=== PATIENT | female | born 1975 | race Caucasian/White ===

== ENCOUNTER 2016-10-12 11:12 | Emergency (ER) | payer MEDICAID ==
[~2016-10-12] VITALS: Ht 167.6 cm; Wt 95.3 kg
[2016-10-12 11:20] VITALS: BP 164/107; PULSE 75; RESP 18; TEMP 97.2; O2SAT 97
--- NOTE | 2016-10-12 11:26 | NUR ---
Pt placed to ER bed 04 and to gown. Pt report given to NEGRITO Rodriguez.
--- NOTE | 2016-10-12 11:30 | NUR ---
ER at bedside examining patient.
--- NOTE | 2016-10-12 11:35 | NUR ---
PT PRESENTS TO ED C/O VAGINAL BLEEDING SATURATING 2 PERIPADS PER HR. PT REPORTS MISCARRIAGE X 1WK.PT HAS TOTAL OF 4 PER REPORT. PT AAO X 4 . PT TO MOVED TO BED 7 FOR PT PRIVACY AND COMFORT DURING EXAM. FEMALE RN TO ASSIGNED.
--- NOTE | 2016-10-12 11:52 | NUR ---
pt moved to bed 7
[2016-10-12 11:56] LABS: BASOPHILS % (AUTO) 0.4 % (0.0-2.0); EOSINOPHILS # (AUTO) 0.1 K/uL (0.0-0.4); EOSINOPHILS % (AUTO) 1.6 % (0.0-4.0); HEMATOCRIT 43.7 % (36-48); HEMOGLOBIN 14.6 g/dL (12.0-16.0); LYMPHOCYTES # (AUTO) 1.7 K/uL (1.0-5.5); LYMPHOCYTES % (AUTO) 20.3 % (20.5-51.5); MEAN CORPUSCULAR HEMOGLOBIN 30 pg (27-31); MEAN CORPUSCULAR HGB CONC 33 % (32-36); MEAN CORPUSCULAR VOLUME 89 fL (79.0-98.0); MONOCYTES # (AUTO) 0.5 K/uL (0.0-1.0); MONOCYTES % (AUTO) 5.5 % (1.7-9.3); NEUTROPHILS % (AUTO) 72.2 % (40.0-70.0); PLATELET COUNT (AUTO) 401 K/uL (130-430); RED BLOOD CELL COUNT(AUTO) 4.92 MIL/uL (4.2-6.2); RED CELL DISTRIBUTION WIDTH 12.8 % (9.0-15.0); WHITE BLOOD COUNT (AUTO) 8.3 K/uL (4.8-10.8)
[2016-10-12 12:05] LABS: CALCIUM 9.2 mg/dL (8.4-11.0); CREATININE 0.87 mg/dL (0.55-1.30); POTASSIUM 3.8 mmol/L (3.5-5.1)
--- NOTE | 2016-10-12 12:05 | NUR ---
Patient presents to the emergency department with complaints of heavy vaginal bleeding since thursday and 710 RLQ pain. Patient states she is soaking 1 overnight pad every 2 hours. will continue to monitor
--- NOTE | 2016-10-12 12:10 | NUR ---
off unit to Radiology for ultrasound via w/c
[2016-10-12 12:13] LABS: BILIRUBIN,URINE NEGATIVE (NEGATIVE); BLOOD, URINE 3+ (NEGATIVE); CLARITY/URINE CLOUDY (CLEAR); COLOR,URINE RED (YELLOW); GLUCOSE,URINE NEGATIVE (NEGATIVE); KETONES,URINE TRACE (NEGATIVE); LEUKOCYTE ESTERASE ,URINE TRACE (NEGATIVE); NITRITE, URINE POSITIVE (NEGATIVE); PROTEIN URINE 2+ (NEGATIVE)
[2016-10-12 12:15] LABS: ALBUMIN 4.2 g/dL (3.4-4.8); TOTAL BILIRUBIN 0.5 mg/dL (0.0-1.0); TOTAL PROTEIN, SERUM 8.4 g/dL (6.4-8.3)
[2016-10-12 12:27] LABS: BACTERIA,URINE FEW /HPF (None Seen); MUCUS,URINE 1+ /LPF (None Seen); RBC,URINE >100 /HPF (0-3)
--- NOTE | 2016-10-12 12:32 | NUR ---
report given to Bree MAHAN, care endorsed
[2016-10-12] MEDS ORDERED: NACL 0.9% 1,000 ML IV ONE (13:00)
[2016-10-12] MEDS ORDERED: cefTRIAXone 1 GM IVPB PREMIX 50 ML IV ONE (13:00)
--- NOTE | 2016-10-12 13:14 | NUR ---
Pt on stable condition, pt c/o Rlower abd pain 7/10, denies active bleeding.
--- NOTE | 2016-10-12 14:06 | NUR ---
Pelvic exam performed by DR PEREYRA with MYSELF at bedside for entire examination. Patient tolerated procedure WELL. Patient assisted to position of comfort after examination.
[2016-10-12] MEDS ORDERED: PROCHLORPERAZINE EDISYLATE 10 MG/2 ML VIAL IVP ONE (14:30)
[2016-10-12] MEDS ORDERED: KETOROLAC TROMETHAMINE 30 MG VIAL IVP ONE (14:30)
--- NOTE | 2016-10-12 14:35 | NUR ---
PT TOLERATED MEDICATION WELL. MONITORING PT PRIOR TO D/C.
[2016-10-12 14:50] VITALS: BP 124/81; PULSE 82; RESP 18; TEMP 97.6; O2SAT 97
--- NOTE | 2016-10-12 14:50 | NUR ---
Patient given written and verbal discharge instructions and verbalizes understanding. ER MD discussed with patient the results and treatment provided. Given copies of tests performed in ER. Patient in stable condition. ID arm band removed. IV catheter removed intact and dressing applied, no active bleeding. Rx of MOTRIN,MACROBID given. Patient educated on pain management and to follow up with PMD. Pain Scale 0 Opportunity for questions provided and answered.
== END 2016-10-12 14:50 | disposition home or self-care (01) ==
LOC: SED 11:12
DX: N93.8 Other specified abnormal uterine and vaginal bleeding (principal); N39.0 Urinary tract infection, site not specified; R31.9 Hematuria, unspecified; I10 Essential (primary) hypertension
CPT/HCPCS: 36415; 76830; 76857; 80053; 81000; 81025; 84702; 85025; 87086; 96365; 96375; 99285; J0696; J0780; J1885; 76856-TC; J7030